=== PATIENT | male | born 1960 | race African-American/Black ===

== ENCOUNTER 2022-09-20 08:41 | Emergency (ER) | payer OTHER, MEDICAID ==
[~2022-09-20] VITALS: Ht 177.8 cm; Wt 84.0 kg
[2022-09-20 10:07] LABS: BASOPHILS % 0.8 % (0.0-2.0); EOSINOPHILS % 0.6 % (0.0-5.0); HEMATOCRIT. 42.1 % (42.0-52.0); HEMOGLOBIN. 13.8 g/dL (14.0-18.0); LYMPHOCYTES % 21.1 % (20.0-50.0); MEAN CORPUSCULAR HEMOGLOBIN 32.4 pg (28.0-32.0); MEAN CORPUSCULAR VOLUME 98.5 fL (80.0-94.0); MEAN PLATELET VOLUME 8.8 fl (7.4-10.4); MONOCYTES % 4.6 % (2.0-8.0); NEUTROPHILS % 72.9 % (40.0-76.0); PLATELET 90 x1000/uL (130-400); RED BLOOD CELL COUNT 4.27 mill/uL (4.7-6.1); RED CELL DISTRIBUTION WIDTH 13.7 % (11.6-14.6)
[2022-09-20 10:27] LABS: CHLORIDE 100 mEq/L (98-107)
[2022-09-20 12:27] VITALS: BP 152/89
== END 2022-09-20 12:28 | disposition home or self-care (01) ==
LOC: ER 08:41
DX: R55 Syncope and collapse (principal); I10 Essential (primary) hypertension; Z20.822 Contact with and (suspected) exposure to COVID-19
CPT/HCPCS: 36415; 71045; 80053; 83880; 84484; 85025; 87426; 87804; 93005; 99285; C9803

== ENCOUNTER 2022-11-11 09:10 | Emergency (ER) | payer OTHER, MEDICAID ==
[~2022-11-11] VITALS: Ht 177.8 cm; Wt 78.0 kg
[2022-11-11] MEDS ORDERED: SODIUM CHLORIDE 0.9% 1,000 ML IV ONE (09:15)
[2022-11-11 10:31] LABS: BASOPHILS % 0.5 % (0.0-2.0); EOSINOPHILS % 0.4 % (0.0-5.0); HEMATOCRIT. 43.3 % (42.0-52.0); HEMOGLOBIN. 14.2 g/dL (14.0-18.0); LYMPHOCYTES % 16.8 % (20.0-50.0); MEAN CORPUSCULAR HEMOGLOBIN 32.8 pg (28.0-32.0); MEAN CORPUSCULAR VOLUME 100.1 fL (80.0-94.0); MEAN PLATELET VOLUME 9.3 fl (7.4-10.4); MONOCYTES % 3.7 % (2.0-8.0); NEUTROPHILS % 78.6 % (40.0-76.0); PLATELET 142 x1000/uL (130-400); RED BLOOD CELL COUNT 4.33 mill/uL (4.7-6.1); RED CELL DISTRIBUTION WIDTH 13.8 % (11.6-14.6)
[2022-11-11 10:54] LABS: CHLORIDE 101 mEq/L (98-107)
[2022-11-11 13:06] LABS: CLARITY URINE CLEAR (CLEAR); COLOR URINE YELLOW (YELLOW); KETONES URINE 2+ (NEGATIVE); LEUKOCYTE ESTERASE URINE NEGATIVE (NEGATIVE); NITRITE URINE NEGATIVE (NEGATIVE); OCCULT BLOOD URINE NEGATIVE (NEGATIVE); PROTEIN URINE TRACE (NEGATIVE); UROBILINOGEN URINE 0.2 E.U./dL (0.2-1.0)
[2022-11-11 14:00] VITALS: BP 166/79
== END 2022-11-11 14:43 | disposition home or self-care (01) ==
LOC: ER 09:17 → CANBEDREQ 13:35 → ER 14:43
DX: R53.1 Weakness (principal); R42 Dizziness and giddiness; I10 Essential (primary) hypertension
CPT/HCPCS: 36415; 74176; 80053; 81003; 82962; 83690; 84484; 85025; 93005; 96360; 96361; 99285; J7030

== ENCOUNTER 2023-04-24 16:58 | Emergency (ER) | payer OTHER, MEDICAID ==
[~2023-04-24] VITALS: Ht 188 cm; Wt 78.0 kg
[2023-04-24 17:00] VITALS: O2SAT 100
[2023-04-24] MEDS ORDERED: ONDANSETRON HCL 4MG/2ML INJ IV STA (17:11)
[2023-04-24] MEDS ORDERED: MORPHINE SULFATE 4 MG/ML CPJ (NOT FOR IM USE) IV STA (17:11)
[2023-04-24] MEDS ORDERED: SODIUM CHLORIDE 0.9% 1,000 ML IV ONE (17:15)
[2023-04-24] MEDS ORDERED: ETOMIDATE 2MG/ML 10ML VIAL IV ONE (18:30)
[2023-04-24] MEDS ORDERED: MORPHINE SULFATE 4 MG/ML CPJ (NOT FOR IM USE) IV ONE (18:30)
[2023-04-24 20:38] LABS: BASOPHILS % 0.2 % (0.0-2.0); EOSINOPHILS % 0.5 % (0.0-5.0); HEMATOCRIT. 39.5 % (42.0-52.0); HEMOGLOBIN. 12.4 g/dL (14.0-18.0); LYMPHOCYTES % 8.7 % (20.0-50.0); MEAN CORPUSCULAR HEMOGLOBIN 30.4 pg (28.0-32.0); MEAN CORPUSCULAR HGB CONC 31.3 g/dL (31.0-37.0); MEAN CORPUSCULAR VOLUME 97.1 fL (80.0-94.0); MEAN PLATELET VOLUME 8.4 fl (7.4-10.4); MONOCYTES % 7.7 % (2.0-8.0); NEUTROPHILS % 82.9 % (40.0-76.0); PLATELET 140 x1000/uL (130-400); RED BLOOD CELL COUNT 4.07 mill/uL (4.7-6.1); RED CELL DISTRIBUTION WIDTH 13.9 % (11.6-14.6); WHITE BLOOD COUNT 7.4 x1000/uL (4.5-11.0)
[2023-04-24 20:42] LABS: PARTIAL THROMBOPLASTIN TIME 25.6 sec (23.4-31.0); PROTHROMBIN TIME 10.6 sec (9.6-11.0)
[2023-04-24 20:46] LABS: CHLORIDE 112 mEq/L (98-107); INDEX HEMOLYSI 1 (1-3); INDEX ICTERIC 1 (1-4); INDEX LIPEMIC 1 (1-3); SODIUM 141 mEq/L (136-145)
[2023-04-24 20:53] LABS: ALANINE AMINOTRANSFERASE 33 IU/L (13-61); ALBUMIN 3.9 g/dL (3.4-5.0); ASPARTATE AMINOTRANSFERASE 57 IU/L (15-37); BILIRUBIN TOTAL 0.2 mg/dL (0.1-1.0); CARBON DIOXIDE 22 mEq/L (21-32); CREATININE 0.7 mg/dL (0.6-1.3); GLUCOSE 99 mg/dL (70-105); PROTEIN TOTAL 7.7 g/dL (6.0-8.3); UREA NITROGEN BLOOD 7 mg/dL (7-21)
[2023-04-24 23:06] VITALS: BP 145/82; PULSE 88; RESP 12; TEMP 98.3
== END 2023-04-24 23:11 | disposition short-term general hospital (02) ==
LOC: ER 16:58 → CANBEDREQ 04-25 03:21
DX: S73.005A Unspecified dislocation of left hip, initial encounter (principal); I10 Essential (primary) hypertension; W18.2XXA Fall in (into) shower or empty bathtub, initial encounter; Y93.89 Activity, other specified; Y92.89 Other specified places as the place of occurrence of the external cause; Y99.8 Other external cause status; F19.90 Other psychoactive substance use, unspecified, uncomplicated
CPT/HCPCS: 80053; 85025; 85610; 85730; 86850; 86900; 86901; 36415; 73502; 73552; 71045; 72170; 70450; 93005; 27250; 96361; 96374; 99152; 99285; J3490; J2405; J2270; J7030; Z7610 ×3; 27265

== ENCOUNTER 2023-06-02 19:02 | Emergency (ER) | payer OTHER, MEDICAID ==
[~2023-06-02] VITALS: Ht 182.9 cm; Wt 70.0 kg
[2023-06-02 19:09] VITALS: BP 136/94; PULSE 88; RESP 16; TEMP 98.7; O2SAT 100
[2023-06-02] MEDS ORDERED: TETANUS, DIPHTHERIA, PERTUSSIS VAC/PF 0.5ML (>10YR OLD) IM ONE (20:15)
[2023-06-02] MEDS ORDERED: ACETAMINOPHEN 325MG TABLET PO ONE (20:15)
[2023-06-02] MEDS ORDERED: METH-653 MT (21:56)
[2023-06-02] MEDS ORDERED: IBUP-2029 MT (21:56)
== END 2023-06-02 22:31 | disposition home or self-care (01) ==
LOC: ER 19:02
DX: S01.01XA Laceration without foreign body of scalp, initial encounter (principal); M25.511 Pain in right shoulder; M25.512 Pain in left shoulder; I10 Essential (primary) hypertension; Y08.89XA Assault by other specified means, initial encounter; Y93.9 Activity, unspecified; Y92.89 Other specified places as the place of occurrence of the external cause; Y99.8 Other external cause status
CPT/HCPCS: 73030; 70450; 72125; 90715; 12001; 90471; 99285; Z7610

== ENCOUNTER 2025-05-23 00:57 | Emergency (ER) | payer OTHER, MEDICAID ==
[~2025-05-23] VITALS: Ht 177.8 cm; Wt 81.0 kg
[~2025-05-23 00:57] MED LIST: IBUP-1455 MT; METH-653 MT
[2025-05-23 01:15] VITALS: O2SAT 99
[2025-05-23] MEDS: FLUORESCEIN SODIUM 1MG/STRIP LEFTEYE ONE (01:30)
[2025-05-23] MEDS: ACETAMINOPHEN 325MG TABLET PO ONE (01:30)
[2025-05-23] MEDS ORDERED: TETRACAINE 0.5% OPHTH DROPS 4ML LEFTEYE ONE ×2 (01:30→03:15)
[2025-05-23] MEDS: TETRACAINE 0.5% OPHTH DROPS 4ML LEFTEYE NR (03:15)
[2025-05-23] MEDS: ACETAMINOPHEN 325MG TABLET PO NR (04:21)
[2025-05-23] MEDS ORDERED: HYDR-4001 MT (04:42)
[2025-05-23] MEDS: HYDROCODONE/ACETAMINOPHEN 5/325MG TABLET PO ONE (04:54)
[2025-05-23 05:50] VITALS: BP 142/74; PULSE 98; RESP 16; TEMP 37; O2SAT 95
== END 2025-05-23 06:10 | disposition home or self-care (01) ==
LOC: ER 01:10
DX: S00.12XA Contusion of left eyelid and periocular area, initial encounter (principal); G31.9 Degenerative disease of nervous system, unspecified; I10 Essential (primary) hypertension; I67.82 Cerebral ischemia; W01.0XXA Fall on same level from slipping, tripping and stumbling without subsequent striking against object, initial encounter; Y93.89 Activity, other specified; Y92.89 Other specified places as the place of occurrence of the external cause; Y99.8 Other external cause status
CPT/HCPCS: 70486; 99285